=== PATIENT | male | born 1985 | race Caucasian/White ===

== ENCOUNTER → 2016-07-04 | Outpatient (REF) | payer OTHER | END | disposition home or self-care (01) | LOC: M SMT 17:01 | PROVIDERS: ATTEND Nurse Practitioner Family | DX: N39.43 Post-void dribbling (principal) ==

== ENCOUNTER → 2020-05-12 | Outpatient (CLI) | payer OTHER ==
--- NOTE | 2020-05-12 19:04 | REP ---
INDICATION: LEFT TESTICULAR PAIN. COMPARISON: None. TECHNIQUE: High-resolution bilateral scrotal sonography. FINDINGS: Testicular parenchyma is normal homogeneous. No intratesticular mass lesion is seen. Normal epididymi are seen. There is no evidence of hydrocele, varicocele, or any a. right testicular dimensions are 5.9 x 3.0 x 3.0 cm. Left testis measures 5.7 x 2.3 x 3.2 cm. Doppler flow is intact in both testes. Resistive indices are measured at 0.57 on the right and 0.47 on the left testis. IMPRESSION: Normal bilateral scrotal sonography. <Electronically signed by Vadim Burden > 05/12/20 2035
== END ==
LOC: M RAD 15:39
PROVIDERS: ATTEND Physician Assistant
DX: N50.812 Left testicular pain (principal)